=== PATIENT | male | born 1995 | race Two or more races ===

== ENCOUNTER 2018-06-19 10:11 | Observation (INO) | payer MEDICAID ==
[~2018-06-19] VITALS: Ht 175.3 cm; Wt 79.5 kg
[2018-06-19 10:49] LABS: BASOPHILS # (AUTO) 0.06 x10^3/uL (0-0.1); BASOPHILS % (AUTO) 1 % (0-1); EOSINOPHILS # (AUTO) 0.03 x10^3/uL (0-0.4); EOSINOPHILS % (AUTO) 0 % (1-7); LYMPHOCYTES # (AUTO) 1.16 x10^3/uL (1-3.4); LYMPHOCYTES % (AUTO) 12 % (22-44); MD NO; MEAN CORPUSCULAR HEMOGLOBIN 30.7 pg (27.5-34.5); MEAN CORPUSCULAR HGB CONC 34.4 g/dL (33.2-36.2); MEAN CORPUSCULAR VOLUME 89.4 fL (81-97); MEAN PLATELET VOLUME 8.3 fL (7.4-10.4); MONOCYTES # (AUTO) 0.56 x10^3/uL (0.2-0.8); MONOCYTES % (AUTO) 6 % (2-9); NEUTROPHILS # (AUTO) 7.68 x10^3/uL (1.8-6.8); NEUTROPHILS % (AUTO) 81 % (42-75); PLATELET COUNT 263 x10^3/uL (130-400); RED BLOOD COUNT 5.52 x10^6/uL (4.38-5.82); RED CELL DISTRIBUTION WIDTH 13.4 % (9.4-14.8)
[2018-06-19 11:01] LABS: ALBUMIN 4.1 g/dL (3.4-5.0); ANION GAP 6 mmol/L (5-15); CALCIUM 8.2 mg/dL (8.5-10.1); CHLORIDE 115 mmol/L (98-107)
[2018-06-19 11:05] LABS: ALANINE AMINOTRANSFERASE 29 U/L (12-78); ALKALINE PHOSPHATASE 95 U/L (45-117); BILIRUBIN,TOTAL 0.4 mg/dL (0.2-1.0); CREATININE 1.13 mg/dL (0.7-1.3); TOTAL PROTEIN 7.5 g/dL (6.4-8.2)
[2018-06-19 11:06] LABS: SALICYLATE LEVEL < 1.7 mg/dL (2.8-20.0)
[2018-06-19 11:07] LABS: ACETAMINOPHEN < 2 mcg/mL (10-30)
[2018-06-19 11:08] LABS: AMPHETAMINE SCREEN, URINE Positive (Negative); BARBITURATE SCREEN, URINE Negative (Negative); BENZODIAZEPINE SCREEN, URINE Negative (Negative); CANNABINOID SCREEN, URINE Positive (Negative); COCAINE SCREEN, URINE Positive (Negative); METHADONE SCREEN, URINE Negative (Negative); OPIATE SCREEN, URINE Negative (Negative)
[2018-06-19] MEDS ORDERED: HALOPERIDOL 5 MG TABLET PO PRN (12:30)
[2018-06-19] MEDS ORDERED: ACETAMINOPHEN 325 MG TABLET PO PRN (12:30)
[2018-06-19] MEDS ORDERED: ONDANSETRON ODT 4 MG PO PRN (12:30)
[2018-06-19] MEDS ORDERED: LORazepam 2 MG/ML, 1ML IM PRN (12:30)
[2018-06-19 16:38] VITALS: BP 117/74
[2018-06-19 19:20] VITALS: BP 105/64
== END 2018-06-19 22:16 ==
LOC: ED 10:50 → SUATTDRO 12:01 → EDIP 12:03 → 2N 16:32
PROVIDERS: ADMIT Internal Medicine; ATTEND Internal Medicine
DX: T14.91XA Suicide attempt, initial encounter (principal); T54.92XA Toxic effect of unspecified corrosive substance, intentional self-harm, initial encounter; R11.0 Nausea; F17.200 Nicotine dependence, unspecified, uncomplicated; Y92.89 Other specified places as the place of occurrence of the external cause; Y93.89 Activity, other specified; Y99.8 Other external cause status; Z91.5 Personal history of self-harm
CPT/HCPCS: 36415; 80053; 80307; 80329; 85025; 99284; G0378; G0480

== ENCOUNTER 2018-08-03 14:25 | Emergency (ER) | payer MEDICAID ==
[~2018-08-03] VITALS: Ht 175.3 cm; Wt 82.1 kg
[2018-08-03 14:27] VITALS: BP 109/81
[2018-08-03] MEDS ORDERED: IBUPROFEN 200 MG TABLET ONE (14:56)
[2018-08-03] MEDS ORDERED: ACETAMINOPHEN 500 MG TABLET ONE (14:56)
[2018-08-03] MEDS ORDERED: IBUPROFEN 200 MG TABLET PO ONE (15:00)
[2018-08-03] MEDS ORDERED: ACETAMINOPHEN 325 MG TABLET PO ONE (15:00)
== END 2018-08-03 15:07 | disposition home or self-care (01) ==
LOC: ED 15:01
DX: K01.1 Impacted teeth (principal); F17.200 Nicotine dependence, unspecified, uncomplicated
CPT/HCPCS: 99283